=== PATIENT | female | born 1955 | race Asian ===

== ENCOUNTER 2016-12-24 14:18 | Emergency (ER) | payer SELFPAY ==
[~2016-12-24] VITALS: Ht 149.9 cm; Wt 52.2 kg
[2016-12-24 14:25] VITALS: BP 148/87
[2016-12-24] MEDS ORDERED: IBUPROFEN600 MG ORAL (15:44)
[2016-12-24] MEDS ORDERED: ZOFRAN4 M3 ORAL (15:44)
[2016-12-24 16:04] VITALS: BP 148/87
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
== END 2016-12-24 15:48 | disposition home or self-care (01) ==
LOC: EDBD 14:18 → EMR 14:29
DX: R51 Headache (principal); V49.50XA Passenger injured in collision with unspecified motor vehicles in traffic accident, initial encounter; Y92.410 Unspecified street and highway as the place of occurrence of the external cause
CPT/HCPCS: 99283